=== PATIENT | female | born 1935 | race Caucasian/White ===

== ENCOUNTER 2017-12-18 12:00 | Inpatient (IN) ==
[2017-12-18] MEDS ORDERED: Ipratropium/Albuterol Neb 3 ML IH ONE (12:28)
[2017-12-18] MEDS ORDERED: methylPREDNISolone 125 MG/2 ML VIAL IVP ONE (12:28)
--- NOTE | 2017-12-18 12:53 | Emergency Department Note ---
Disposition Clinical Impression: Pneumonia Qualifiers: Pneumonia type: due to unspecified organism Laterality: bilateral Lung location : unspecified part of lung Qualified Code(s): J18.9 - Pneumonia, unspecified organism Acute and chronic respiratory failure Qualifiers: Respiratory failure complication: hypoxia Qualified Code(s): J96.21 - Acute and chronic respiratory failure with hypoxia Disposition: Admitted As Inpatient Condition: Fair Time of Disposition: 18:16 SOB HPI - General Chief Complaint: ED Shortness of Breath/Dyspnea Stated Complaint: shortness of breath Time Seen by Provider: 12/18/17 12:21 Source: patient, family Limitations: no limitations Nursing Notes Reviewed: Yes Vital Signs Reviewed: Yes - History of Present Illness Mrs. Olivera, an 82 year old female, presents from home for evaluation of URI type symptoms with associated dyspnea with exertion. She has productive cough. Onset one week ago after the flu shot. She was around her [id number] who had similar URI type symptoms at that time. Her symptoms are improved with her home albuterol inhaler. She has no home supple oxygen. Patient is she has had subjective fever but there were not measured. She has nausea with decreased appetite; no vomiting. No diarrhea or constipation. She does have a headache however no vertigo, no confusion, no changes in vision, no numbness or tingling. PMH: Asthma. No history of COPD. Habits: Never smoked, no illicits, no EtOH ROS: Positive: As above Negative: Measured fever, nausea, vomiting, vertigo, confusion, changes in vision, numbness, tingling, diarrhea, constipation, changes in urination, abdominal pain. - Related Data Home Medications Medication Instructions Recorded Confirmed Amitriptyline [Elavil] 25 mg PO HS 08/10/15 12/18/17 Lisinopril [Zestril] 20 mg PO DAILY 08/10/15 12/18/17 Montelukast [Singulair] 10 mg PO DAILY 08/10/15 12/18/17 Albuterol Neb [Proventil Neb] 2.5 mg IH BID 12/18/17 12/18/17 Albuterol Sulfate [Albuterol 2 puff IH Q4H PRN 12/18/17 12/18/17 Inhaler] Ipratropium Neb [Atrovent Neb] 0.5 mg IH QID 12/18/17 12/18/17 Pramipexole Di-HCl [Pramipexole 0.5 mg PO HS 12/18/17 12/18/17 Dihydrochloride] Allergies Allergy/AdvReac Type Severity Reaction Status Date / Time No Known Allergies Allergy Verified 12/18/17 12:17 All systems ED: reviewed and negative except as stated. Review of Systems: As Per HPI Past Medical History - Past Medical History Medical history: Reports: asthma, hyperlipidemia, hypertension Surgical history: Reports: cholecystectomy, orthopedic, other Psychiatric history: Reports: no psych history PHILOSOPHY INSTRUCTOR history: Reports: no PHILOSOPHY INSTRUCTOR history - Social History Smoking Status: Never smoker Smokeless Tobacco Status: No Alcohol use: Reports: none Drug use: Reports: none Physical Exam Vital Signs Reviewed General: Patient is alert, oriented, and in no acute distress. HEENT: No facial asymmetry. Head is normocephalic and atraumatic. PERRLA, EOMI. oral mucosa moist. Cardiovascular: Heart regular rate and rhythm without clicks, rubs, gallops, or murmurs. No JVD. PMI nondisplaced. Bilateral radial posterior tibial pulses 2 /4 equal. No pedal edema. Respiratory: Symmetric chest rise with good respiratory effort and good air entry to the bilateral lung bases. Bilateral breath sounds are clear without wheezing, crackles, or rhonchi. Abdomen: Bowel sounds present normoactive x-4 quadrants. Abdomen is soft, nondistended, and nontender. No organomegaly noted. Musculoskeletal: Spontaneously moving all extremities. Neuro: Alert and oriented 4. Psych: Patient's affect is appropriate for situation. - General Limitations: no limitations General appearance: alert, in no apparent distress Course Course Narrative: In the context of the patient's asthma with no history of smoking, her presentation was initially suspicious for acute exacerbation of asthma. Her lung sounds, however, were completely clear on auscultation. She did have good air entry inferring her lack of wheeze was not for lack of air movement. History is concerning for right-sided pneumonia. This provides a better explanation for her symptoms. Sick on her baseline room air with conversation; pulse ox to the mid 80s. She is agreeable to admission to the hospital for continued evaluation and management. Of note, patient's d-dimer is elevated to 803. This is below the age-adjusted cutoff of 840. Have started empiric antibiotics. Patient does not have elevated lactic acid. I discussed the patient with the admitting hospitalist, Dr. Lambert, who agrees to accept the patient for continued evaluation and management. Chest X-Ray 12/18/17 12:28 IMPRESSION: Mild bibasilar and right mid lung airspace opacities could reflect pneumonia in the correct clinical setting. D/ / 12/18/2017 13:23:40 Sedrick Hinds MD / obey Interpreting Provider: Sedrick Hinds MD Vital Signs Temperature 98.1 F 12/18/17 12:13 Pulse Rate 81 12/18/17 12:13 Respiratory Rate 16 12/18/17 12:13 Blood Pressure 145/77 12/18/17 12:13 O2 Sat by Pulse Oximetry 95 12/18/17 12:13 Temperature 97.8 F 12/18/17 17:20 Pulse Rate 81 12/18/17 17:20 Respiratory Rate 18 12/18/17 17:20 Blood Pressure 152/83 12/18/17 17:20 O2 Sat by Pulse Oximetry 97 12/18/17 17:59 Oxygen Delivery Oxygen Delivery Room Air Shortness of Breath/Dyspnea - Medical Records Medical records reviewed: Yes I reviewed the patient's medical records. - Lab Data Lab results reviewed: Yes I reviewed the patient's lab results. Result diagrams: 12/18/17 12:50 12/18/17 12:50 Lab Results 12/18/17 12/18/17 12/18/17 Range/Units 12:50 12:50 12:50 WBC 9.3 (4.3-11.1) K/mcL RBC 3.63 L (3.82-4.97) M/mcL Hgb 10.8 L (11.5-15.4) g/dL Hct 33.2 L (35.3-44.9) % MCV 91.5 (83.0-100.0) fL MCH 29.8 (28.0-33.3) pg MCHC 32.5 (31.6-35.5) g/dL RDW 13.0 (11.5-14.5) % Plt Count 268 (140-400) K/mcL MPV 9.8 (9.4-12.4) fL Immature Gran % 1.2 (0-4) % Seg Neutrophils % 76.2 % Lymphocytes % 14.3 % Monocytes % 6.6 % Eosinophils % 1.5 % Basophils % 0.2 % Neutrophils # 7.1 (1.6-8.9) K/mcL Lymphocytes # 1.3 (0.6-4.6) K/mcL Monocytes # 0.6 (0.0-1.3) K/mcL Eosinophils # 0.1 (0.0-0.6) K/mcL Basophils # 0.0 (0.0-0.2) K/mcL D-Dimer (0-500) ng/mLFEU Sodium 140 (136-145) mEq/L Potassium 3.5 (3.5-5.1) mEq/L Chloride 104 (98-107) mEq/L Carbon Dioxide 30 H (23-29) mEq/L BUN 24 H (8-23) mg/dL Creatinine 0.79 (0.60-1.20) mg/dL Est GFR ( Amer) > 60 (> 60) Est GFR (Non-Af Amer) > 60 (> 60) BUN/Creatinine Ratio 30 H (6-26) Glucose 118 H (70-105) mg/dL Calculated Osmolality 295 (280-300) Lactic Acid (0.5-2.2) mmol/L Calcium 9.0 (8.6-10.3) mg/dL Troponin I < 0.03 (< 0.04) ng/mL 12/18/17 12/18/17 Range/Units 13:10 15:16 WBC (4.3-11.1) K/mcL RBC (3.82-4.97) M/mcL Hgb (11.5-15.4) g/dL Hct (35.3-44.9) % MCV (83.0-100.0) fL MCH (28.0-33.3) pg MCHC (31.6-35.5) g/dL RDW (11.5-14.5) % Plt Count (140-400) K/mcL MPV (9.4-12.4) fL Immature Gran % (0-4) % Seg Neutrophils % % Lymphocytes % % Monocytes % % Eosinophils % % Basophils % % Neutrophils # (1.6-8.9) K/mcL Lymphocytes # (0.6-4.6) K/mcL Monocytes # (0.0-1.3) K/mcL Eosinophils # (0.0-0.6) K/mcL Basophils # (0.0-0.2) K/mcL D-Dimer 803 H (0-500) ng/mLFEU Sodium (136-145) mEq/L Potassium (3.5-5.1) mEq/L Chloride (98-107) mEq/L Carbon Dioxide (23-29) mEq/L BUN (8-23) mg/dL Creatinine (0.60-1.20) mg/dL Est GFR ( Amer) (> 60) Est GFR (Non-Af Amer) (> 60) BUN/Creatinine Ratio (6-26) Glucose (70-105) mg/dL Calculated Osmolality (280-300) Lactic Acid 0.6 (0.5-2.2) mmol/L Calcium (8.6-10.3) mg/dL Troponin I (< 0.04) ng/mL - Radiology Data Radiology results reviewed: Yes I reviewed the patient's radiology results. - EKG Data EKG attestation: Yes I reviewed and interpreted this EKG. EKG results narrative: EKG dated 12/18/17 at 12:30 turbid as sinus rhythm with rate of 79. Normal intervals. Normal axis. Isolated T-wave inversion in lead V1. Otherwise nonspecific ST-T changes. Compared to previous EKG dated 12/16/2012 showing no acute ischemic changes in comparison; inverted T-wave present in V1 comparison. Attestation Statement - Attestation Attestation: I examined this patient and my medical decision-making was reviewed with the Resident Physician. I agree with the documented findings, disposition and treatment plan as described except to the extent set forth below. Patient presents to the ED with a chief complaint of shortness of breath. She spelled out for about a week. Worse today. Dyspnea on exertion. Coughing. On examination she has some end expiratory wheezing. Her oxygen saturation drops to the mid 80s with conversation. Plan. Cardiac workup. Aerosols. Steroids and reevaluate.
[2017-12-18 13:08] LABS: Basophils % 0.2 %; Eosinophils # 0.1 K/mcL (0.0-0.6); Eosinophils % 1.5 %; Hematocrit 33.2 % (35.3-44.9); Hemoglobin 10.8 g/dL (11.5-15.4); Immature Granulocytes % 1.2 % (0-4); Lymphocytes # 1.3 K/mcL (0.6-4.6); Lymphocytes % 14.3 %; Mean Corpuscular HGB Conc 32.5 g/dL (31.6-35.5); Mean Corpuscular Hemoglobin 29.8 pg (28.0-33.3); Mean Corpuscular Volume 91.5 fL (83.0-100.0); Mean Platelet Volume 9.8 fL (9.4-12.4); Monocytes # 0.6 K/mcL (0.0-1.3); Monocytes % 6.6 %; Neutrophils # 7.1 K/mcL (1.6-8.9); Platelet Count 268 K/mcL (140-400); Red Blood Count 3.63 M/mcL (3.82-4.97); Segmented Neutrophils % 76.2 %
[2017-12-18 13:24] LABS: BUN/Creatinine Ratio 30 (6-26); Blood Urea Nitrogen 24 mg/dL (8-23); Carbon Dioxide 30 mEq/L (23-29); Chloride 104 mEq/L (98-107); Glucose 118 mg/dL (70-105); Osmolality,Calculated 295 (280-300); Potassium 3.5 mEq/L (3.5-5.1); Sodium 140 mEq/L (136-145); eGFR For African Americans > 60 (> 60); eGFR For Non-African Americans > 60 (> 60)
[2017-12-18] MEDS ORDERED: Azithromycin 500 MG in D5% in Water 250 ML IVPB ONE (15:03)
[2017-12-18] MEDS ORDERED: cefTRIAXone 1,000 MG in Water for inj. (sterile) 20 ML 10 ML IVP ONE (15:03)
[2017-12-18 18:03] LABS: Bilirubin,Urine Negative (Negative); Blood,Urine Negative (Negative); Clarity,Urine Clear (Clear); Color,Urine Yellow (Yellow); Glucose,Urine (UA) Normal (Normal); Ketones,Urine Negative (Negative); Leukocyte Esterase,Urine Negative (Negative); Nitrite,Urine Negative (Negative); PH,Urine 6.5 pH Units (5.0-8.0); Protein,Urine Trace mg/dL (Neg-Trace)
[2017-12-18 18:05] LABS: Bacteria,Urine None Seen per hpf (None-Few); Hyaline Casts,Urine None Seen per lpf (None-Few); Squamous Epithelial Cell,Urine Moderate per lpf (None-Few); WBC,Urine 0-3 per hpf (0-3)
[2017-12-18] MEDS ORDERED: Ipratropium/Albuterol Neb 3 ML IH PRN (19:59)
[2017-12-18] MEDS ORDERED: Naloxone 0.4 MG/ML INJ IVP PRN (20:53)
[2017-12-18] MEDS ORDERED: Ondansetron ODT 4 MG TAB.RAPDIS SL PRN (20:53)
--- NOTE | 2017-12-18 20:54 | Internal Med History&Physical ---
<Ernesto Ghotra - Last Filed: 12/18/17 20:51> Date of Encounter: 12/18/17 Time of Encounter: 08:00 Assessment and Plan (1) Dyspnea Current visit: Yes Status: Acute Improved since admission Most likely PNA Will rule out PE Qualifiers: Dyspnea type: shortness of breath Qualified Code(s): R06.02 - Shortness of breath; R06.00 - Dyspnea, unspecified; R06.01 - Orthopnea (2) Pneumonia Current visit: Yes Status: Suspected CXR showed mild bibasilar and right mid lung opacities which could represent PNA With clinical picture of productive cough, chills, and subjective fever, we will treat as PNA Patient received azithromycin and ceftriaxone in the ED, which we will continue , as well as a dose of steroids Flu negative Qualifiers: Pneumonia type: due to unspecified organism Laterality: left Lung location: lower lobe of lung Qualified Code(s): J18.1 - Lobar pneumonia, unspecified organism (3) Elevated d-dimer Current visit: Yes Status: Acute Elevated at 803 This is within age adjusted range up to 840 With CP and SOB, there is relatively low suspicion, but we will check CTA Chest NS @ 75 ml/hr to maintain kidney function (4) Asthma Current visit: Yes Status: Acute Does not appear to be in exacerbation. Restarted home medications of albuterol, ipratropium, and singulair Qualifiers: Asthma severity: unspecified severity Asthma persistence: unspecified Asthma complication type: uncomplicated Qualified Code(s): J45.909 - Unspecified asthma, uncomplicated (5) HTN (hypertension) Current visit: Yes Status: Acute Controlled Restarted home lisinopril 20 mg. Qualifiers: Hypertension type: essential hypertension Qualified Code(s): I10 - Essential (primary) hypertension (6) DVT prophylaxis Current visit: Yes Status: Acute Internal Medicine - H&P: HPI Chief complaint: SOB Admitted From: Home Plans for Post Hospital Care: Home History of present illness: Ms. Olivera is a 82 year old female who presented with SOB which started yesterday. She denies any specific inciting factor. She admits to an associated productive cough without hemoptysis. She admits cold sweats chills, and subjective fever. She admits to chest pain associated with cough in the superior midline chest. She denies any wheezes. PMH significant for asthma, hypertension, and hyperlipidemia. Past Med Surg Social Fam HX - Past Medical History Medical history: asthma, hyperlipidemia, hypertension Psychiatric history: no psych history - Past Surgical History Surgical History: cholecystectomy, orthopedic, other - Social History Smoking Status: Never smoker Smokeless Tobacco Status: No Alcohol use: none Drug use: none Internal Medicine - H&P: Meds Amitriptyline [Elavil] 25 mg PO HS 08/10/15 [History] Lisinopril [Zestril] 20 mg PO DAILY 08/10/15 [History] Montelukast [Singulair] 10 mg PO DAILY 08/10/15 [History] Albuterol Neb [Proventil Neb] 2.5 mg IH BID 12/18/17 [History] Albuterol Sulfate [Albuterol Inhaler] 2 puff IH Q4H PRN 12/18/17 [History] Ipratropium Neb [Atrovent Neb] 0.5 mg IH QID 12/18/17 [History] Pramipexole Di-HCl [Pramipexole Dihydrochloride] 0.5 mg PO HS 12/18/17 [History] 3 Allergy/AdvReac Type Severity Reaction Status Date / Time No Known Allergies Allergy Verified 12/18/17 12:17 All Systems PM: A 10-system review of systems was performed and is negative for pertinent findings except as documented above in the HPI. Review of systems: As per HPI - Constitutional Vitals: Temp Pulse Resp BP Pulse Ox 98.3 F 83 17 122/71 96 12/18/17 18:55 12/18/17 18:55 12/18/17 20:29 12/18/17 18:55 12/18/17 20:29 General appearance: Present: cooperative, A&O X 3, pleasant, no acute distress, answers questions appropriately - Head Head exam: Present: atraumatic, normal inspection, normocephalic - ENT ENT exam: Present: mucous membranes moist - Neck Neck exam general surgery: Present: trachea midline - Respiratory Respiratory exam: Present: decreased breath sounds. Absent: accessory muscle use, rales, respiratory distress, rhonchi, wheezes, tachypnea - Cardiovascular Cardiovascular exam: Present: RRR, +S1, +S2 - GI/Abdominal GI/Abdominal exam: Present: soft, no peritoneal signs. Absent: tenderness - Extremities Exam Extremities exam: Absent: pedal edema - Neurological Exam Neurological exam: Present: alert, oriented X3. Absent: altered - Psychiatric Psychiatric exam: Present: normal affect, normal mood. Absent: agitated, anxious - Skin Skin exam: Present: dry, warm Internal Med - H&P Results - Labs CBC & Chem 7: 12/18/17 12:50 12/18/17 12:50 Labs: Urine 12/18/17 Range/Units 17:49 Urine Color Yellow (Yellow) Urine Clarity Clear (Clear) Urine pH 6.5 (5.0-8.0) pH Units Ur Specific [place] 1.020 (1.010-1.025) Urine Protein Trace (Neg-Trace) mg/dL Urine Glucose (UA) Normal (Normal) mg/dL <Uli Soto - Last Filed: 12/19/17 01:48> Date of Encounter: 12/18/17 Time of Encounter: 23:45 Past Med Surg Social Fam HX - Past Medical History Attestation: Yes The following information was validated with the patient. Source: patient, old records reviewed Medical history: asthma - Constitutional Constitutional: fever(s) (subjective), no chills, no night sweats - EENT Eyes: no blurry vision, no change in vision Ears: no ear pain, no tinnitus Nose, mouth and throat: nasal congestion, sinus pressure, no sore throat - Cardiovascular Cardiovascular ROS IM: chest pain, no dyspnea, no dyspnea on exertion, no palpitations, no syncope - Respiratory Respiratory: cough, wheezing, chest congestion, excessive phlegm production, change in phlegm color, pain with cough - Gastrointestinal Gastrointestinal: no abdominal pain, no diarrhea, no hematemesis, no hematochezia, no melena, no nausea, no vomiting - Genitourinary Genitourinary: no dysuria, no flank pain, no hematuria - Musculoskeletal Musculoskeletal ROS IM: no arthralgias, no back pain, no muscle cramps, no myalgias - Integumentary Integumentary IM: no rash, no jaundice - Neurological Neurological ROS: no dizziness, no focal weakness, no frequent falls - Psychiatric Psychiatric: no anxiety, no depression - Endocrine Endocrine IM: no polydipsia, no polyuria - Hematologic/Lymphatic Hematologic/Lymphatic: no easy bruising, no lymphadenopathy - Allergic/Immunologic Allergic/Immunologic: wheezing, no GI upset with certain foods - Constitutional Vitals: Temp Pulse Resp BP Pulse Ox 97.7 F 77 18 111/65 93 12/18/17 23:18 12/18/17 23:18 12/18/17 23:18 12/18/17 23:18 12/18/17 23:18 General appearance: Present: cooperative, A&O X 3, pleasant, no acute distress - Head Head exam: Present: normal inspection - Eye Eye exam: Present: PERRL. Absent: scleral icterus - ENT ENT exam: Present: mucous membranes dry, normal exam - Neck Neck exam general surgery: Present: supple. Absent: lymphadenopathy - Respiratory Respiratory exam: Present: decreased breath sounds, rales (mostly in right base) . Absent: accessory muscle use, chest wall tenderness, respiratory distress - Cardiovascular Cardiovascular exam: Present: RRR, +S1, +S2 - GI/Abdominal GI/Abdominal exam: Present: soft. Absent: tenderness - Extremities Exam Extremities exam: Present: full ROM, warm, radial pulses palpable and symmetrical. Absent: calf tenderness - Back Exam Back exam: Absent: CVA tenderness (L), CVA tenderness (R) - Neurological Exam Neurological exam: Present: alert, oriented X3, no focal deficits - Psychiatric Psychiatric exam: Present: normal affect, normal mood - Skin Skin exam: Present: dry, warm. Absent: rash Internal Med - H&P Results - Labs CBC & Chem 7: 12/18/17 12:50 12/18/17 12:50 Labs: Urine 12/18/17 Range/Units 17:49 Urine Color Yellow (Yellow) Urine Clarity Clear (Clear) Urine pH 6.5 (5.0-8.0) pH Units Ur Specific [place] 1.020 (1.010-1.025) Urine Protein Trace (Neg-Trace) mg/dL Urine Glucose (UA) Normal (Normal) mg/dL - Impressions ITS Impressions Chest CTA 12/18/17 21:55 IMPRESSION: Limited by motion. No central pulmonary embolus. Segmental and subsegmental branches are not well evaluated secondary to artifact Multifocal airspace disease, suspicious for pneumonia. There is lucency seen in a nodular opacity in the right middle lobe which could represent dilated bronchus versus early cavitation. Secretions are seen in the lower lobe airways bilaterally. Small mediastinal nodes are seen, likely reactive D/ / Johnny Dougherty MD / Johnny Dougherty MD Interpreting Provider: Johnny Dougherty MD - Diagnostic Studies Chest x-ray Status: image reviewed by me (mild/early RML infiltrate process) - Attending Attestation I discussed the patient SYCUAN, PMH, ROS, lab data, and exam findings, with Dr. Ghotra. I then saw and examined patient independently as well. Patient gives a history suggestive of possible pneumonia/bronchitis. However, the pleuritic type chest pain she was explaining to me prompted me to order a CTA of her chest to rule out PE. CTA was negative for PE but did confirm findings concerning for pneumonia. We will continue IV antibiotics and aerosols as per Dr. Ghotra. She received a dose of Solumedrol in the ER, but I do not feel she needs steroids any further at this time. Other than my comments above and noted exam findings, I agree with Dr. Ghotra's assessment and plan.
[2017-12-18] MEDS: 0.9 % Sodium Chloride 1,000 ML IVC SCH (22:35)
[2017-12-19] MEDS: Ipratropium Neb 0.5 MG NEBULIZER IH SCH ×4 (04:18→23:07)
[2017-12-19 04:46] LABS: Hematocrit 34.8 % (35.3-44.9); Hemoglobin 10.8 g/dL (11.5-15.4); Immature Granulocytes % 1.2 % (0-4); Lymphocytes # 0.7 K/mcL (0.6-4.6); Lymphocytes % 8.2 %; Mean Corpuscular Hemoglobin 28.5 pg (28.0-33.3); Mean Corpuscular Volume 91.8 fL (83.0-100.0); Mean Platelet Volume 9.7 fL (9.4-12.4); Monocytes # 0.1 K/mcL (0.0-1.3); Monocytes % 1.3 %; Neutrophils # 7.7 K/mcL (1.6-8.9); Platelet Count 279 K/mcL (140-400); Red Blood Count 3.79 M/mcL (3.82-4.97); Red Cell Distribution Width 13.2 % (11.5-14.5); Segmented Neutrophils % 89.3 %
[2017-12-19] MEDS: *HR* Heparin 5,000 UNIT/ML VIAL SQ SCH ×2 (05:07→17:12)
[2017-12-19 05:17] LABS: BUN/Creatinine Ratio 31 (6-26); Blood Urea Nitrogen 19 mg/dL (8-23); Calcium 8.5 mg/dL (8.6-10.3); Carbon Dioxide 28 mEq/L (23-29); Chloride 105 mEq/L (98-107); Glucose 142 mg/dL (70-105); Osmolality,Calculated 295 (280-300); Potassium 4.2 mEq/L (3.5-5.1); Sodium 140 mEq/L (136-145); eGFR For African Americans > 60 (> 60); eGFR For Non-African Americans > 60 (> 60)
[2017-12-19] MEDS: Lisinopril 20 MG TABLET PO SCH (09:00)
[2017-12-19] MEDS: Albuterol 2.5 MG/3 ML NEBULIZER IH SCH ×2 (10:51→23:07)
[2017-12-19] MEDS: 0.9 % Sodium Chloride 1,000 ML IVC SCH (12:10)
[2017-12-19] MEDS: cefTRIAXone 1,000 MG in Water for inj. (sterile) 20 ML 10 ML IVP SCH (14:17)
[2017-12-19] MEDS: Azithromycin 500 MG in D5% in Water 250 ML IVPB SCH (14:18)
--- NOTE | 2017-12-19 17:46 | Internal Med Progress Note ---
Date of Encounter: 12/19/17 Time of Encounter: 11:00 - Assessment and plan (1) Pneumonia Current Visit: Yes Status: Suspected Assessment and plan: -Patient with no improvement in shortness of breath or productive cough and currently requiring supplemental oxygenation -Chest x-ray showed mild bibasilar and right mid lung airspace opacities could reflect pneumonia -CTA showed multifocal airspace disease, suspicious for pneumonia -Will continue IV ceftriaxone, azithromycin and DuoNeb's for community acquired pneumonia Qualifiers: Pneumonia type: due to unspecified organism Laterality: left Lung location: lower lobe of lung Qualified Code(s): J18.1 - Lobar pneumonia, unspecified organism (2) Acute and chronic respiratory failure Current Visit: Yes Status: Acute Assessment and plan: -Patient requiring 2 L of supplemental oxygenation secondary to community acquired pneumonia above Qualifiers: Respiratory failure complication: hypoxia Qualified Code(s): J96.21 - Acute and chronic respiratory failure with hypoxia (3) Asthma Current Visit: Yes Status: Acute Assessment and plan: -Patient does not appear clinically to have asthma exacerbation as there is no wheezing on exam. -Will not nitiate steroids at this point but will continue DuoNeb's. Qualifiers: Asthma severity: unspecified severity Asthma persistence: unspecified Asthma complication type: uncomplicated Qualified Code(s): J45.909 - Unspecified asthma, uncomplicated (4) HTN (hypertension) Current Visit: Yes Status: Acute Assessment and plan: -Controlled; continue RYAN inhibitor Qualifiers: Hypertension type: essential hypertension Qualified Code(s): I10 - Essential (primary) hypertension (5) DVT prophylaxis Current Visit: Yes Status: Acute Assessment and plan: Subcutaneous heparin - Subjective Interval history: Patient with not much improvement in shortness of breath or productive cough; admitted overnight - Constitutional Vitals: Temp Pulse Resp BP Pulse Ox 97.4 F L 78 18 121/62 94 12/19/17 14:58 12/19/17 15:05 12/19/17 15:05 12/19/17 15:05 12/19/17 15:05 General appearance: Present: cooperative, A&O X 3, pleasant, no acute distress - Respiratory Respiratory exam: Present: CTAB. Absent: accessory muscle use, rales, rhonchi, wheezes - Cardiovascular Cardiovascular exam: Present: RRR, +S1, +S2. Absent: diastolic murmur, gallop, rubs, systolic murmur Internal Medicine: Result - Labs CBC & Chem 7: 12/19/17 04:18 12/19/17 04:18 Labs: Short CBC 12/19/17 Range/Units 04:18 WBC 8.6 (4.3-11.1) K/mcL Hgb 10.8 L (11.5-15.4) g/dL Hct 34.8 L (35.3-44.9) % Plt Count 279 (140-400) K/mcL Neutrophils # 7.7 (1.6-8.9) K/mcL BMP 12/19/17 04:18 Sodium 140 Potassium 4.2 Chloride 105 Carbon Dioxide 28 BUN 19 Creatinine 0.61 Glucose 142 H Calcium 8.5 L Urine 12/18/17 Range/Units 17:49 Urine Color Yellow (Yellow) Urine Clarity Clear (Clear) Urine pH 6.5 (5.0-8.0) pH Units Ur Specific [place] 1.020 (1.010-1.025) Urine Protein Trace (Neg-Trace) mg/dL Urine Glucose (UA) Normal (Normal) mg/dL - ABG Interpretation ABG results: PT/INR, D-dimer D-Dimer 803 ng/mLFEU (0-500) H 12/18/17 13:10 - Impressions Impressions Chest CTA 12/18/17 21:55 IMPRESSION: Limited by motion. No central pulmonary embolus. Segmental and subsegmental branches are not well evaluated secondary to artifact Multifocal airspace disease, suspicious for pneumonia. There is lucency seen in a nodular opacity in the right middle lobe which could represent dilated bronchus versus early cavitation. Secretions are seen in the lower lobe airways bilaterally. Small mediastinal nodes are seen, likely reactive D/ / Johnny Dougherty MD / Johnny Dougherty MD Interpreting Provider: Johnny Dougherty MD Consult Discharge Plan - Plan Referrals: Rubina Broussard GARBAGE PERSON [Primary Care Provider] -
[2017-12-20] MEDS: 0.9 % Sodium Chloride 1,000 ML IVC SCH (03:48)
[2017-12-20] MEDS: Ipratropium Neb 0.5 MG NEBULIZER IH SCH ×4 (04:14→22:54)
[2017-12-20] MEDS: *HR* Heparin 5,000 UNIT/ML VIAL SQ SCH ×2 (06:02→16:50)
[2017-12-20] MEDS: Lisinopril 20 MG TABLET PO SCH (08:06)
[2017-12-20 10:04] LABS: Basophils % 0.3 %; Eosinophils # 0.1 K/mcL (0.0-0.6); Hematocrit 35.8 % (35.3-44.9); Hemoglobin 10.9 g/dL (11.5-15.4); Immature Granulocytes % 0.8 % (0-4); Lymphocytes # 1.9 K/mcL (0.6-4.6); Lymphocytes % 20.3 %; Mean Corpuscular HGB Conc 30.4 g/dL (31.6-35.5); Mean Corpuscular Hemoglobin 28.7 pg (28.0-33.3); Mean Corpuscular Volume 94.2 fL (83.0-100.0); Mean Platelet Volume 9.6 fL (9.4-12.4); Monocytes # 0.5 K/mcL (0.0-1.3); Monocytes % 5.8 %; Neutrophils # 6.7 K/mcL (1.6-8.9); Platelet Count 271 K/mcL (140-400); Red Cell Distribution Width 13.4 % (11.5-14.5); Segmented Neutrophils % 71.8 %
[2017-12-20 10:15] LABS: BUN/Creatinine Ratio 24 (6-26); Blood Urea Nitrogen 16 mg/dL (8-23); Calcium 8.4 mg/dL (8.6-10.3); Carbon Dioxide 29 mEq/L (23-29); Chloride 107 mEq/L (98-107); Glucose 112 mg/dL (70-105); Osmolality,Calculated 292 (280-300); Potassium 3.9 mEq/L (3.5-5.1); Sodium 140 mEq/L (136-145); eGFR For African Americans > 60 (> 60); eGFR For Non-African Americans > 60 (> 60)
[2017-12-20] MEDS: Albuterol 2.5 MG/3 ML NEBULIZER IH SCH ×2 (11:03→22:54)
[2017-12-20] MEDS: cefTRIAXone 1,000 MG in Water for inj. (sterile) 20 ML 10 ML IVP SCH (14:54)
[2017-12-20] MEDS: Azithromycin 500 MG in D5% in Water 250 ML IVPB SCH (14:58)
--- NOTE | 2017-12-20 18:17 | Internal Med Progress Note ---
Date of Encounter: 12/20/17 Time of Encounter: 11:00 - Assessment and plan (1) Pneumonia Current Visit: Yes Status: Suspected Assessment and plan: -Patient with some improvement in shortness of breath or productive cough and currently requiring supplemental oxygenation -Chest x-ray showed mild bibasilar and right mid lung airspace opacities could reflect pneumonia -CTA showed multifocal airspace disease, suspicious for pneumonia -Will continue IV ceftriaxone, azithromycin and DuoNeb's for community acquired pneumonia Qualifiers: Pneumonia type: due to unspecified organism Laterality: left Lung location: lower lobe of lung Qualified Code(s): J18.1 - Lobar pneumonia, unspecified organism (2) Acute and chronic respiratory failure Current Visit: Yes Status: Acute Assessment and plan: -Patient requiring 2 L of supplemental oxygenation secondary to community acquired pneumonia above Qualifiers: Respiratory failure complication: hypoxia Qualified Code(s): J96.21 - Acute and chronic respiratory failure with hypoxia (3) Asthma Current Visit: Yes Status: Acute Assessment and plan: -Patient does not appear clinically to have asthma exacerbation as there is no wheezing on exam. -Will not nitiate steroids at this point but will continue DuoNeb's. Qualifiers: Asthma severity: unspecified severity Asthma persistence: unspecified Asthma complication type: uncomplicated Qualified Code(s): J45.909 - Unspecified asthma, uncomplicated (4) HTN (hypertension) Current Visit: Yes Status: Acute Assessment and plan: -Controlled; continue RYAN inhibitor Qualifiers: Hypertension type: essential hypertension Qualified Code(s): I10 - Essential (primary) hypertension (5) DVT prophylaxis Current Visit: Yes Status: Acute Assessment and plan: Subcutaneous heparin - Subjective Interval history: Patient some improvement in shortness of breath or productive cough She is still requiring supplemental oxygenation - Constitutional Vitals: Temp Pulse Resp BP Pulse Ox 97.8 F 80 15 162/74 95 12/20/17 16:19 12/20/17 16:19 12/20/17 16:19 12/20/17 16:19 12/20/17 16:19 General appearance: Present: cooperative, A&O X 3, pleasant, no acute distress - Cardiovascular Cardiovascular exam: Present: RRR, +S1, +S2. Absent: diastolic murmur, gallop, rubs, systolic murmur - GI/Abdominal GI/Abdominal exam: Present: normal bowel sounds, soft, no peritoneal signs. Absent: distended, tenderness Internal Medicine: Result - Labs CBC & Chem 7: 12/20/17 09:48 12/20/17 09:48 Labs: Short CBC 12/20/17 Range/Units 09:48 WBC 9.3 (4.3-11.1) K/mcL Hgb 10.9 L (11.5-15.4) g/dL Hct 35.8 (35.3-44.9) % Plt Count 271 (140-400) K/mcL Neutrophils # 6.7 (1.6-8.9) K/mcL BMP 12/20/17 09:48 Sodium 140 Potassium 3.9 Chloride 107 Carbon Dioxide 29 BUN 16 Creatinine 0.66 Glucose 112 H Calcium 8.4 L - ABG Interpretation ABG results: PT/INR, D-dimer D-Dimer 803 ng/mLFEU (0-500) H 12/18/17 13:10 Consult Discharge Plan - Plan Referrals: Rubina Broussard, [facility] [Primary Care Provider] -
[2017-12-21] MEDS: Ipratropium Neb 0.5 MG NEBULIZER IH SCH ×3 (04:58→16:30)
[2017-12-21] MEDS: *HR* Heparin 5,000 UNIT/ML VIAL SQ SCH (05:50)
--- NOTE | 2017-12-21 06:37 | Electrocardiograph Report ---
[address] [address] Test Date: 2017-12-18 Pat Name: Peace Olivera Department: 104 Room: 3A23 Gender: F [employer]: AM : 1935 Requested By: Ben Cid Order Number: [id number] Reading MD: Neri Child MD Measurements Intervals [place] Rate: 79 P: 44 [place]: 163 QRS: 4 QRSD: 98 T: 22 QT: 393 QTc: 428 Interpretive Statements SINUS RHYTHM VOLTAGE CRITERIA FOR LVH BASELINE ARTIFACT Electronically Signed On 12-21-2017 6:35:36 EST by Neri Child MD
[2017-12-21 06:54] LABS: BUN/Creatinine Ratio 24 (6-26); Blood Urea Nitrogen 15 mg/dL (8-23); Calcium 8.5 mg/dL (8.6-10.3); Carbon Dioxide 30 mEq/L (23-29); Chloride 104 mEq/L (98-107); Glucose 107 mg/dL (70-105); Osmolality,Calculated 287 (280-300); Potassium 4.1 mEq/L (3.5-5.1); Sodium 138 mEq/L (136-145); eGFR For African Americans > 60 (> 60); eGFR For Non-African Americans > 60 (> 60)
[2017-12-21 07:30] LABS: Basophils % 0.3 %; Eosinophils # 0.2 K/mcL (0.0-0.6); Eosinophils % 2.1 %; Hematocrit 34.4 % (35.3-44.9); Hemoglobin 10.9 g/dL (11.5-15.4); Immature Granulocytes % 0.7 % (0-4); Lymphocytes # 1.3 K/mcL (0.6-4.6); Lymphocytes % 18.6 %; Mean Corpuscular HGB Conc 31.7 g/dL (31.6-35.5); Mean Corpuscular Hemoglobin 29.1 pg (28.0-33.3); Mean Platelet Volume 10.2 fL (9.4-12.4); Monocytes # 0.6 K/mcL (0.0-1.3); Monocytes % 7.8 %; Platelet Count 247 K/mcL (140-400); Red Blood Count 3.74 M/mcL (3.82-4.97); Red Cell Distribution Width 13.3 % (11.5-14.5); Segmented Neutrophils % 70.5 %
[2017-12-21] MEDS: Lisinopril 20 MG TABLET PO SCH (09:38)
[2017-12-21] MEDS: Albuterol 2.5 MG/3 ML NEBULIZER IH SCH (10:33)
[2017-12-21 14:33] VITALS: BP 128/79
[2017-12-21] MEDS: Azithromycin 500 MG in D5% in Water 250 ML IVPB SCH (15:34)
[2017-12-21] MEDS: cefTRIAXone 1,000 MG in Water for inj. (sterile) 20 ML 10 ML IVP SCH (15:34)
--- NOTE | 2017-12-21 16:21 | Discharge Summary ---
Date of Encounter: 12/21/17 Time of Encounter: 11:00 - Discharge Diagnosis (1) Pneumonia Priority: Primary Status: Suspected Qualifiers: Pneumonia type: due to unspecified organism Laterality: left Lung location: lower lobe of lung Qualified Code(s): J18.1 - Lobar pneumonia, unspecified organism (2) Acute and chronic respiratory failure Priority: Secondary Status: Acute Qualifiers: Respiratory failure complication: hypoxia Qualified Code(s): J96.21 - Acute and chronic respiratory failure with hypoxia (3) Asthma Priority: Secondary Status: Acute Qualifiers: Asthma severity: unspecified severity Asthma persistence: unspecified Asthma complication type: uncomplicated Qualified Code(s): J45.909 - Unspecified asthma, uncomplicated (4) HTN (hypertension) Priority: Secondary Status: Acute Qualifiers: Hypertension type: essential hypertension Qualified Code(s): I10 - Essential (primary) hypertension - Discharge Medications Prescriptions: Azithromycin [Zithromax Tri-Steven] 500 mg PO DAILY #5 tablet Home Medications: Amitriptyline [Elavil] 25 mg PO HS 08/10/15 [History] Lisinopril [Zestril] 20 mg PO DAILY 08/10/15 [History] Montelukast [Singulair] 10 mg PO DAILY 08/10/15 [History] Albuterol Neb [Proventil Neb] 2.5 mg IH BID 12/18/17 [History] Albuterol Sulfate [Albuterol Inhaler] 2 puff IH Q4H PRN 12/18/17 [History] Ipratropium Neb [Atrovent Neb] 0.5 mg IH QID 12/18/17 [History] Pramipexole Di-HCl [Pramipexole Dihydrochloride] 0.5 mg PO HS 12/18/17 [History] Azithromycin [Zithromax Tri-Steven] 500 mg PO DAILY #5 tablet 12/21/17 [Rx] Allergies/Adverse Reactions: 3 Allergy/AdvReac Type Severity Reaction Status Date / Time No Known Allergies Allergy Verified 12/18/17 12:17 Date of admission: 12/20/17 18:17 Primary care physician: Jovani Liz - Patient Status Disposition: Home, Self-Care Condition: Fair - Discharge Instructions Instructions: Asthma (DC), Acute Respiratory Distress Syndrome (DC) Follow Up With: Rubina Broussard, [facility] [Primary Care Provider] - Hospital course: Patient is an 82-year-old female with past medical history significant for hypertension and asthma who presented to the ER on 12/20/17 due to shortness of breath/cough. Patient reported of an associated productive cough without hemoptysis so was brought to the ER for further evaluation. In the ER, chest x-ray showed mild bibasilar and right mid lung airspace opacities which could reflect pneumonia and CTA showed multifocal airspace disease, suspicious for pneumonia. Patient was admitted to the medical floor for treatment for community acquired pneumonia. During patients hospital stay, her symptoms resolved with treatment of IV ceftriaxone and IV azithromycin in addition to DuoNebs. Patient was also found to be in acute hypoxic respiratory failure which resolved after treatment for pneumonia as above and was able to be weaned off oxygen. She was recommended for swing bed/custodial facility but family insist that patient was coerced to agree with plan. Family is refusing recommendations for patient to go to swing bed/custodial facility and requesting to take patient home today. She will be discharged home to continue a 5 day course of azithromycin and to follow-up of her primary care provider. - Time Spent with Patient Total time spent providing and/or coordinating discharge services: Less than 30 minutes - Constitutional Vitals: Temp Pulse Resp BP Pulse Ox 97.5 F L 76 16 128/79 94 12/21/17 14:28 12/21/17 14:28 12/21/17 14:28 12/21/17 14:28 12/21/17 14:28 General appearance: Present: cooperative, A&O X 3, pleasant, no acute distress - Respiratory Respiratory exam: Present: CTAB. Absent: accessory muscle use, rales, rhonchi, wheezes - Cardiovascular Cardiovascular exam: Present: RRR, +S1, +S2. Absent: diastolic murmur, gallop, rubs, systolic murmur
== END 2017-12-21 16:55 | disposition home or self-care (01) | DRG 193 ==
LOC: 3ANU 12:00 → EMEROO 12:00 → 3ANU 16:47
PROVIDERS: ADMIT Hospitalist; ATTEND Hospitalist

== ENCOUNTER 2019-11-16 12:13 | Inpatient (IN) ==
[2019-11-16] MEDS ORDERED: Naloxone 0.4 MG/ML INJ IVP PRN (14:43)
[2019-11-16] MEDS ORDERED: *HR* Metoprolol 5 MG/5 ML VIAL IVP ONE (14:47)
[2019-11-16] MEDS ORDERED: Furosemide 40 MG/4 ML VIAL IVP ONE (14:47)
[2019-11-16] MEDS ORDERED: clonazePAM 0.5 MG TABLET PO PRN (15:33)
[2019-11-16] MEDS: methylPREDNISolone 125 MG/2 ML VIAL IVP SCH (15:51)
[2019-11-16] MEDS: Ipratropium/Albuterol Neb 3 ML IH SCH ×3 (16:28→23:58)
[2019-11-16] MEDS: *HR* Heparin 5,000 UNIT/ML VIAL SQ SCH (17:46)
[2019-11-16 17:50] LABS: Adenovirus Not Detected (Not Detect); Bordetella Pertussis Not Detected (Not Detect); Chlamydophila pneumoniae Not Detected (Not Detect); Coronavirus 229E Not Detected (Not Detect); Coronavirus HKU1 Not Detected (Not Detect); Coronavirus NL63 Not Detected (Not Detect); Coronavirus OC43 Not Detected (Not Detect); Human Metapneumovirus Not Detected (Not Detect); Human Rhinovirus/Enterovirus Not Detected (Not Detect); Influenza A Subtype 2009 H1 Not Detected (Not Detect); Influenza A Untypeable Not Detected (Not Detect); Influenza B Not Detected (Not Detect); Mycoplasma pneumoniae Not Detected (Not Detect); Parainfluenza Virus 1 Not Detected (Not Detect); Parainfluenza Virus 2 Not Detected (Not Detect); Parainfluenza Virus 3 Not Detected (Not Detect); Parainfluenza Virus 4 Not Detected (Not Detect); Respiratory Syncytial Virus DETECTED (Not Detect)
[2019-11-16] MEDS: Budesonide/Formoterol 80/4.5 1 PUFF INH IH SCH (20:12)
[2019-11-17] MEDS: methylPREDNISolone 125 MG/2 ML VIAL IVP SCH ×2 (00:30→07:41)
[2019-11-17] MEDS: Ipratropium/Albuterol Neb 3 ML IH SCH ×5 (03:45→19:44)
[2019-11-17] MEDS: *HR* Heparin 5,000 UNIT/ML VIAL SQ SCH ×2 (05:26→17:05)
[2019-11-17 06:37] LABS: Basophils % 0.2 %; Hematocrit 41.4 % (35.3-44.9); Hemoglobin 13.8 g/dL (11.5-15.4); Immature Granulocytes % 0.6 % (0-4); Lymphocytes # 0.5 K/mcL (0.6-4.6); Lymphocytes % 7.2 %; Mean Corpuscular HGB Conc 33.3 g/dL (31.6-35.5); Mean Corpuscular Hemoglobin 30.4 pg (28.0-33.3); Mean Corpuscular Volume 91.2 fL (83.0-100.0); Mean Platelet Volume 10.8 fL (9.4-12.4); Monocytes # 0.4 K/mcL (0.0-1.3); Monocytes % 5.5 %; Neutrophils # 5.7 K/mcL (1.6-8.9); Platelet Count 183 K/mcL (140-400); Red Blood Count 4.54 M/mcL (3.82-4.97); Red Cell Distribution Width 13.3 % (11.5-14.5); Segmented Neutrophils % 86.5 %; White Blood Count 6.5 K/mcL (4.3-11.1)
[2019-11-17 06:55] LABS: BUN/Creatinine Ratio 38 (6-26); Blood Urea Nitrogen 28 mg/dL (8-23); Carbon Dioxide 31 mEq/L (23-29); Chloride 93 mEq/L (98-107); Glucose 123 mg/dL (70-105); Osmolality,Calculated 303 (280-300); Platelet Estimate Normal (Normal); Potassium 3.8 mEq/L (3.5-5.1); Sodium 143 mEq/L (136-145); eGFR For African Americans > 60 (> 60); eGFR For Non-African Americans > 60 (> 60)
[2019-11-17] MEDS: Budesonide/Formoterol 80/4.5 1 PUFF INH IH SCH (07:23)
[2019-11-17] MEDS ORDERED: Albuterol 2.5 MG/3 ML NEBULIZER IH PRN ×2 (09:48→10:55)
[2019-11-17] MEDS: Metoprolol XL (24 HR) Succ 25 MG TAB.ER.24H PO SCH (11:03)
[2019-11-17] MEDS: Lisinopril 20 MG TABLET PO SCH (11:03)
[2019-11-17] MEDS ORDERED: Racepinephrine Neb 0.5 ML VIAL IH ONE (15:45)
[2019-11-17] MEDS: MethylPREDNISolone 40 MG/ML VIAL IVP SCH ×2 (16:52→23:12)
[2019-11-17] MEDS ORDERED: *HR* Metoprolol 5 MG/5 ML VIAL IVP ONE ×2 (16:56→16:59)
[2019-11-17 18:05] LABS: VBG HCO3 34 mEq/L (21-27); VBG PCO2 53 mmHg (41-51); VBG PH 7.42 pH Units (7.32-7.42); VBG PO2 231 mmHg (25-50)
[2019-11-17] MEDS: Budesonide/Formoterol 160/4.5 1 PUFF INH IH SCH (19:44)
[2019-11-18] MEDS: Ipratropium/Albuterol Neb 3 ML IH SCH ×7 (00:40→23:00)
[2019-11-18] MEDS: *HR* Heparin 5,000 UNIT/ML VIAL SQ SCH ×2 (06:06→17:09)
[2019-11-18] MEDS: Budesonide/Formoterol 160/4.5 1 PUFF INH IH SCH ×2 (07:46→20:21)
[2019-11-18] MEDS: Lisinopril 20 MG TABLET PO SCH (07:59)
[2019-11-18] MEDS: Metoprolol XL (24 HR) Succ 25 MG TAB.ER.24H PO SCH (07:59)
[2019-11-18] MEDS: MethylPREDNISolone 40 MG/ML VIAL IVP SCH ×3 (07:59→23:35)
[2019-11-19] MEDS: Ipratropium/Albuterol Neb 3 ML IH SCH ×5 (03:58→18:56)
[2019-11-19] MEDS: *HR* Heparin 5,000 UNIT/ML VIAL SQ SCH ×2 (05:28→16:44)
[2019-11-19 05:53] LABS: Basophils % 0.2 %; Hematocrit 41.8 % (35.3-44.9); Hemoglobin 13.6 g/dL (11.5-15.4); Immature Granulocytes % 0.8 % (0-4); Lymphocytes # 0.6 K/mcL (0.6-4.6); Lymphocytes % 10.4 %; Mean Corpuscular HGB Conc 32.5 g/dL (31.6-35.5); Mean Corpuscular Hemoglobin 30.8 pg (28.0-33.3); Mean Corpuscular Volume 94.6 fL (83.0-100.0); Mean Platelet Volume 11.1 fL (9.4-12.4); Monocytes # 0.3 K/mcL (0.0-1.3); Monocytes % 5.3 %; Neutrophils # 4.4 K/mcL (1.6-8.9); Platelet Count 173 K/mcL (140-400); Red Blood Count 4.42 M/mcL (3.82-4.97); Red Cell Distribution Width 13.2 % (11.5-14.5); Segmented Neutrophils % 83.3 %; White Blood Count 5.3 K/mcL (4.3-11.1)
[2019-11-19 06:52] LABS: BUN/Creatinine Ratio 79 (6-26); Blood Urea Nitrogen 54 mg/dL (8-23); Calcium 9.2 mg/dL (8.6-10.3); Carbon Dioxide 37 mEq/L (23-29); Chloride 96 mEq/L (98-107); Glucose 155 mg/dL (70-105); Osmolality,Calculated 312 (280-300); Potassium 4.3 mEq/L (3.5-5.1); Sodium 142 mEq/L (136-145); eGFR For African Americans > 60 (> 60); eGFR For Non-African Americans > 60 (> 60)
[2019-11-19] MEDS: Budesonide/Formoterol 160/4.5 1 PUFF INH IH SCH ×2 (07:32→20:00)
[2019-11-19] MEDS: Lisinopril 20 MG TABLET PO SCH (08:38)
[2019-11-19] MEDS: MethylPREDNISolone 40 MG/ML VIAL IVP SCH (08:39)
[2019-11-19] MEDS: Metoprolol XL (24 HR) Succ 25 MG TAB.ER.24H PO SCH (08:39)
[2019-11-19] MEDS ORDERED: Metoprolol XL (24 HR) Succ 25 MG TAB.ER.24H PO ONE (15:11)
[2019-11-19] MEDS: predniSONE 20 MG TABLET PO SCH (16:44)
[2019-11-20] MEDS: Ipratropium/Albuterol Neb 3 ML IH SCH ×6 (00:09→16:20)
[2019-11-20] MEDS: *HR* Heparin 5,000 UNIT/ML VIAL SQ SCH (05:06)
[2019-11-20] MEDS: Budesonide/Formoterol 160/4.5 1 PUFF INH IH SCH (07:38)
[2019-11-20] MEDS: Lisinopril 20 MG TABLET PO SCH (08:50)
[2019-11-20] MEDS: predniSONE 20 MG TABLET PO SCH (08:50)
[2019-11-20] MEDS ORDERED: Metoprolol XL (24 HR) Succ 50 MG TAB.ER.24H PO SCH (09:00)
[2019-11-20 11:37] LABS: Basophils % 0.1 %; Hematocrit 41.4 % (35.3-44.9); Hemoglobin 13.4 g/dL (11.5-15.4); Immature Granulocytes % 0.6 % (0-4); Lymphocytes % 12.9 %; Mean Corpuscular HGB Conc 32.4 g/dL (31.6-35.5); Mean Corpuscular Hemoglobin 30.7 pg (28.0-33.3); Mean Corpuscular Volume 94.7 fL (83.0-100.0); Mean Platelet Volume 10.9 fL (9.4-12.4); Monocytes % 11.8 %; Platelet Count 175 K/mcL (140-400); Red Blood Count 4.37 M/mcL (3.82-4.97); Segmented Neutrophils % 74.6 %
[2019-11-20 11:42] LABS: Monocytes # 0.9 K/mcL (0.0-1.3)
[2019-11-20 11:43] LABS: BUN/Creatinine Ratio 70 (6-26); Blood Urea Nitrogen 49 mg/dL (8-23); Calcium 9.5 mg/dL (8.6-10.3); Carbon Dioxide 38 mEq/L (23-29); Chloride 96 mEq/L (98-107); Glucose 106 mg/dL (70-105); Osmolality,Calculated 309 (280-300); Potassium 3.8 mEq/L (3.5-5.1); Sodium 143 mEq/L (136-145); eGFR For African Americans > 60 (> 60); eGFR For Non-African Americans > 60 (> 60)
[2019-11-20 15:31] VITALS: BP 135/78
== END 2019-11-20 18:54 | DRG 202 ==
LOC: 2ANU → SUATTDRO 11-17 14:14 → 2ANU 11-18 21:59
PROVIDERS: ADMIT Internal Medicine; ATTEND Internal Medicine

== ENCOUNTER 2022-01-03 01:17 | Inpatient (IN) ==
[2022-01-03] MEDS ORDERED: Naloxone 0.4 MG/ML INJ IVP PRN (08:23)
[2022-01-03] MEDS ORDERED: Ondansetron 4 MG/2 ML VIAL IVP PRN (08:23)
[2022-01-03] MEDS: MethylPREDNISolone 40 MG/ML VIAL IVP SCH ×2 (09:24→18:08)
[2022-01-03] MEDS: Ipratropium/Albuterol Neb 3 ML IH SCH ×3 (12:56→21:34)
[2022-01-03] MEDS ORDERED: Budesonide/Formoterol 80/4.5 1 PUFF INH IH ONE (17:21)
[2022-01-03] MEDS: Sennosides/Docusate Sodium TABLET PO SCH (20:42)
[2022-01-04] MEDS: Ipratropium/Albuterol Neb 3 ML IH SCH ×4 (04:01→23:30)
[2022-01-04] MEDS: MethylPREDNISolone 40 MG/ML VIAL IVP SCH (05:06)
[2022-01-04 05:35] LABS: Basophils % 0.1 %; Hematocrit 29.5 % (35.3-44.9); Hemoglobin 9.3 g/dL (11.5-15.4); Immature Granulocytes % 0.9 % (0-4); Lymphocytes % 13.1 %; Mean Corpuscular HGB Conc 31.5 g/dL (31.6-35.5); Mean Corpuscular Hemoglobin 30.5 pg (28.0-33.3); Mean Corpuscular Volume 96.7 fL (83.0-100.0); Mean Platelet Volume 10.7 fL (9.4-12.4); Monocytes # 0.4 K/mcL (0.0-1.3); Monocytes % 4.4 %; Neutrophils # 6.5 K/mcL (1.6-8.9); Platelet Count 239 K/mcL (140-400); Red Blood Count 3.05 M/mcL (3.82-4.97); Segmented Neutrophils % 81.5 %
[2022-01-04 05:40] LABS: INR 1.2
[2022-01-04 05:47] LABS: BUN/Creatinine Ratio 40 (6-26); Blood Urea Nitrogen 29 mg/dL (8-23); Calcium 9.1 mg/dL (8.6-10.3); Carbon Dioxide 30 mEq/L (23-29); Chloride 99 mEq/L (98-107); Glucose 155 mg/dL (70-105); Magnesium 2.2 mg/dL (1.6-2.6); Osmolality,Calculated 289 (280-300); Potassium 4.4 mEq/L (3.5-5.1); Sodium 135 mEq/L (136-145); eGFR For African Americans > 60 (> 60); eGFR For Non-African Americans > 60 (> 60)
[2022-01-04] MEDS: Venlafaxine XR (24 HR) 37.5 MG CAP.ER.24H PO SCH (08:52)
[2022-01-04] MEDS: Metoprolol XL (24 HR) Succ 25 MG TAB.ER.24H PO SCH (08:52)
[2022-01-04] MEDS: Sennosides/Docusate Sodium TABLET PO SCH ×2 (08:52→21:48)
[2022-01-04] MEDS: Magnesium Oxide 400 MG TABLET PO SCH (08:53)
[2022-01-04] MEDS: lisinopriL 10 MG TABLET PO SCH (08:53)
[2022-01-04] MEDS: Famotidine 20 MG TABLET PO SCH (08:53)
[2022-01-04] MEDS ORDERED: Metoprolol XL (24 HR) Succ 50 MG TAB.ER.24H PO SCH (09:00)
[2022-01-04] MEDS: Budesonide/Formoterol 80/4.5 1 PUFF INH IH SCH ×2 (10:48→23:30)
[2022-01-04] MEDS ORDERED: Ondansetron 4 MG/2 ML VIAL ONE (12:21)
[2022-01-04] MEDS ORDERED: *HR* Propofol 200 MG/20 ML VIAL IVP ONE ×2 (12:21→13:35)
[2022-01-04] MEDS ORDERED: Lidocaine HCL 4 ML Topical Solution (Laryng-O-Jet Kit Sterile Pak) TP ONE (12:21)
[2022-01-04] MEDS ORDERED: Lidocaine -MPF 2% 5 ML VIAL ONE (12:21)
[2022-01-04] MEDS ORDERED: *HR* Rocuronium Bromide 50 MG/5 ML VIAL ONE (12:21)
[2022-01-04] MEDS ORDERED: *HR* FentaNYL (PF) 100 MCG/2 ML VIAL ONE ×2 (12:21→15:12)
[2022-01-04] MEDS ORDERED: CeFAZolin Syr 2,000MG/20 ML 2,000 MG/20 ML SYRINGE IVPB ONE (13:01)
[2022-01-04] MEDS ORDERED: Acetaminophen IV 1,000 MG/100 ML BAG IVPB ONE (13:03)
[2022-01-04] MEDS ORDERED: ROPIVACAINE/PF/NS 0.25% 1 EACH SYRINGE INTRAART ONE (13:33)
[2022-01-04] MEDS ORDERED: *HR* Vasopressin 20 UNIT/ML VIAL ONE (14:02)
[2022-01-04] MEDS ORDERED: Ketorolac 30 MG/ML VIAL IVP PRN (16:51)
[2022-01-04] MEDS ORDERED: *HR* OxyCODONE Immed Rel 5 MG TABLET PO PRN (16:51)
[2022-01-04] MEDS: Morphine Sulfate 2 MG/ML SYRINGE IVP PRN ×2 (17:27→17:37)
[2022-01-04] MEDS: Ringers Solution, Lactated 1,000 ML IVC SCH (18:31)
[2022-01-04] MEDS: CeFAZolin 2,000 MG/120 ML BAG IVPB SCH (21:50)
[2022-01-04] MEDS ORDERED: 0.9 % Sodium Chloride 1,000 ML IVC ONE (23:46)
[2022-01-05] MEDS ORDERED: Ketorolac 30 MG/ML VIAL IM PRN (02:55)
[2022-01-05] MEDS ORDERED: Naloxone 0.4 MG/ML INJ IVP PRN (02:59)
[2022-01-05] MEDS: Ketorolac 30 MG/ML VIAL IVP PRN (03:03)
[2022-01-05] MEDS: Ipratropium/Albuterol Neb 3 ML IH SCH ×4 (03:46→19:35)
[2022-01-05 04:59] LABS: Basophils % 0.1 %; Immature Granulocytes % 0.8 % (0-4); Lymphocytes # 0.8 K/mcL (0.6-4.6); Lymphocytes % 6.7 %; Mean Corpuscular HGB Conc 31.8 g/dL (31.6-35.5); Mean Corpuscular Hemoglobin 31.3 pg (28.0-33.3); Mean Corpuscular Volume 98.2 fL (83.0-100.0); Mean Platelet Volume 10.5 fL (9.4-12.4); Monocytes # 1.1 K/mcL (0.0-1.3); Monocytes % 8.5 %; Neutrophils # 10.4 K/mcL (1.6-8.9); Platelet Count 244 K/mcL (140-400); Red Blood Count 2.24 M/mcL (3.82-4.97); Red Cell Distribution Width 13.1 % (11.5-14.5); Segmented Neutrophils % 83.9 %
[2022-01-05 05:07] LABS: White Blood Count 12.4 K/mcL (4.3-11.1)
[2022-01-05] MEDS: CeFAZolin 2,000 MG/120 ML BAG IVPB SCH (05:08)
[2022-01-05 05:19] LABS: Calcium 8.1 mg/dL (8.6-10.3); Phosphorous 3.4 mg/dL (2.7-4.5); Potassium 4.3 mEq/L (3.5-5.1)
[2022-01-05] MEDS: Budesonide/Formoterol 80/4.5 1 PUFF INH IH SCH ×2 (08:53→19:35)
[2022-01-05] MEDS: *HR* Enoxaparin 30 MG/0.3 ML SYRINGE SQ SCH (09:10)
[2022-01-05] MEDS: Famotidine 20 MG TABLET PO SCH (09:11)
[2022-01-05] MEDS: Sennosides/Docusate Sodium TABLET PO SCH ×2 (09:11→21:15)
[2022-01-05] MEDS: predniSONE 20 MG TABLET PO SCH (09:11)
[2022-01-05] MEDS: Venlafaxine XR (24 HR) 37.5 MG CAP.ER.24H PO SCH (09:11)
[2022-01-05] MEDS: Magnesium Oxide 400 MG TABLET PO SCH (09:11)
[2022-01-05] MEDS: lisinopriL 10 MG TABLET PO SCH (09:27)
[2022-01-05] MEDS: Metoprolol XL (24 HR) Succ 25 MG TAB.ER.24H PO SCH (09:27)
[2022-01-05] MEDS: *HR* OxyCODONE Immed Rel 5 MG TABLET PO PRN (13:19)
[2022-01-06 00:55] LABS: Hematocrit 21.4 % (35.3-44.9); Hemoglobin 6.6 g/dL (11.5-15.4); Immature Granulocytes % 0.5 % (0-4); Lymphocytes # 1.3 K/mcL (0.6-4.6); Lymphocytes % 12.2 %; Mean Corpuscular HGB Conc 30.8 g/dL (31.6-35.5); Mean Corpuscular Hemoglobin 30.6 pg (28.0-33.3); Mean Corpuscular Volume 99.1 fL (83.0-100.0); Mean Platelet Volume 10.2 fL (9.4-12.4); Monocytes % 9.4 %; Neutrophils # 8.5 K/mcL (1.6-8.9); Platelet Count 247 K/mcL (140-400); Red Blood Count 2.16 M/mcL (3.82-4.97); Red Cell Distribution Width 12.9 % (11.5-14.5); Segmented Neutrophils % 77.9 %; White Blood Count 10.9 K/mcL (4.3-11.1)
[2022-01-06 01:15] LABS: BUN/Creatinine Ratio 51 (6-26); Blood Urea Nitrogen 46 mg/dL (8-23); Calcium 8.4 mg/dL (8.6-10.3); Carbon Dioxide 28 mEq/L (23-29); Chloride 102 mEq/L (98-107); Glucose 105 mg/dL (70-105); Osmolality,Calculated 294 (280-300); Potassium 4.2 mEq/L (3.5-5.1); Sodium 136 mEq/L (136-145); eGFR For African Americans > 60 (> 60); eGFR For Non-African Americans 59 (> 60)
[2022-01-06] MEDS: Ipratropium/Albuterol Neb 3 ML IH SCH ×4 (03:30→19:49)
[2022-01-06] MEDS: Ringers Solution, Lactated 1,000 ML IVC SCH ×2 (07:18→15:01)
[2022-01-06] MEDS ORDERED: 0.9 % Sodium Chloride 250 ML ONE (09:10)
[2022-01-06] MEDS: Famotidine 20 MG TABLET PO SCH (09:45)
[2022-01-06] MEDS: Magnesium Oxide 400 MG TABLET PO SCH (09:46)
[2022-01-06] MEDS: lisinopriL 10 MG TABLET PO SCH (09:46)
[2022-01-06] MEDS: Sennosides/Docusate Sodium TABLET PO SCH ×2 (09:47→21:56)
[2022-01-06] MEDS: Venlafaxine XR (24 HR) 37.5 MG CAP.ER.24H PO SCH (09:47)
[2022-01-06] MEDS: predniSONE 20 MG TABLET PO SCH (09:47)
[2022-01-06] MEDS: *HR* Enoxaparin 30 MG/0.3 ML SYRINGE SQ SCH (09:48)
[2022-01-06] MEDS: Metoprolol XL (24 HR) Succ 25 MG TAB.ER.24H PO SCH (09:48)
[2022-01-06] MEDS: *HR* OxyCODONE Immed Rel 5 MG TABLET PO PRN ×2 (09:56→21:57)
[2022-01-06] MEDS: Budesonide/Formoterol 80/4.5 1 PUFF INH IH SCH ×2 (11:20→19:55)
[2022-01-06] MEDS: Ertapenem 1,000 MG in 0.9 % Sodium Chloride Mini Bag 100 ML IVPB SCH (14:57)
[2022-01-07] MEDS: Ipratropium/Albuterol Neb 3 ML IH SCH ×4 (04:05→21:52)
[2022-01-07] MEDS: Budesonide/Formoterol 80/4.5 1 PUFF INH IH SCH ×2 (08:08→21:53)
[2022-01-07] MEDS: Venlafaxine XR (24 HR) 37.5 MG CAP.ER.24H PO SCH (08:17)
[2022-01-07] MEDS: *HR* OxyCODONE Immed Rel 5 MG TABLET PO PRN ×2 (08:17→19:54)
[2022-01-07] MEDS: Sennosides/Docusate Sodium TABLET PO SCH ×2 (08:17→19:54)
[2022-01-07] MEDS: *HR* Enoxaparin 30 MG/0.3 ML SYRINGE SQ SCH (08:18)
[2022-01-07] MEDS: Metoprolol XL (24 HR) Succ 25 MG TAB.ER.24H PO SCH (08:18)
[2022-01-07] MEDS: Famotidine 20 MG TABLET PO SCH (08:18)
[2022-01-07] MEDS: lisinopriL 10 MG TABLET PO SCH (08:18)
[2022-01-07] MEDS: Magnesium Oxide 400 MG TABLET PO SCH (08:18)
[2022-01-07] MEDS: Ertapenem 1,000 MG in 0.9 % Sodium Chloride Mini Bag 100 ML IVPB SCH (08:18)
[2022-01-07] MEDS: predniSONE 10 MG TABLET PO SCH (08:24)
[2022-01-07 12:00] LABS: Eosinophils % 0.5 %; Hematocrit 26.5 % (35.3-44.9); Hemoglobin 8.4 g/dL (11.5-15.4); Immature Granulocytes % 0.9 % (0-4); Lymphocytes # 0.5 K/mcL (0.6-4.6); Lymphocytes % 7.2 %; Mean Corpuscular HGB Conc 31.7 g/dL (31.6-35.5); Mean Corpuscular Hemoglobin 30.4 pg (28.0-33.3); Mean Platelet Volume 10.1 fL (9.4-12.4); Monocytes # 0.4 K/mcL (0.0-1.3); Monocytes % 6.8 %; Neutrophils # 5.4 K/mcL (1.6-8.9); Platelet Count 214 K/mcL (140-400); Red Blood Count 2.76 M/mcL (3.82-4.97); Red Cell Distribution Width 13.7 % (11.5-14.5); Segmented Neutrophils % 84.6 %; White Blood Count 6.4 K/mcL (4.3-11.1)
[2022-01-07 12:32] LABS: BUN/Creatinine Ratio 50 (6-26); Blood Urea Nitrogen 25 mg/dL (8-23); Calcium 8.9 mg/dL (8.6-10.3); Carbon Dioxide 32 mEq/L (23-29); Chloride 103 mEq/L (98-107); Glucose 114 mg/dL (70-105); Osmolality,Calculated 291 (280-300); Potassium 4.2 mEq/L (3.5-5.1); Sodium 138 mEq/L (136-145); eGFR For African Americans > 60 (> 60); eGFR For Non-African Americans > 60 (> 60)
[2022-01-07] MEDS: Ringers Solution, Lactated 1,000 ML IVC SCH (13:58)
[2022-01-08] MEDS: Ipratropium/Albuterol Neb 3 ML IH SCH ×4 (04:53→23:10)
[2022-01-08] MEDS: Budesonide/Formoterol 80/4.5 1 PUFF INH IH SCH ×2 (08:25→23:09)
[2022-01-08] MEDS: predniSONE 10 MG TABLET PO SCH (09:08)
[2022-01-08] MEDS: Magnesium Oxide 400 MG TABLET PO SCH (09:08)
[2022-01-08] MEDS: Sennosides/Docusate Sodium TABLET PO SCH ×2 (09:09→20:57)
[2022-01-08] MEDS: Venlafaxine XR (24 HR) 37.5 MG CAP.ER.24H PO SCH (09:09)
[2022-01-08] MEDS: Famotidine 20 MG TABLET PO SCH (09:09)
[2022-01-08] MEDS: *HR* Enoxaparin 30 MG/0.3 ML SYRINGE SQ SCH (09:10)
[2022-01-08] MEDS: Ertapenem 1,000 MG in 0.9 % Sodium Chloride Mini Bag 100 ML IVPB SCH (09:11)
[2022-01-08] MEDS: lisinopriL 10 MG TABLET PO SCH (10:06)
[2022-01-08] MEDS: Metoprolol XL (24 HR) Succ 25 MG TAB.ER.24H PO SCH (10:06)
[2022-01-08] MEDS: Ketorolac 30 MG/ML VIAL IVP PRN (10:07)
[2022-01-08] MEDS: Ringers Solution, Lactated 1,000 ML IVC SCH (17:20)
[2022-01-08] MEDS: *HR* OxyCODONE Immed Rel 5 MG TABLET PO PRN (21:01)
[2022-01-09] MEDS: Ipratropium/Albuterol Neb 3 ML IH SCH ×2 (04:50→08:14)
[2022-01-09] MEDS: Budesonide/Formoterol 80/4.5 1 PUFF INH IH SCH (08:13)
[2022-01-09] MEDS: Venlafaxine XR (24 HR) 37.5 MG CAP.ER.24H PO SCH (09:48)
[2022-01-09] MEDS: *HR* Enoxaparin 30 MG/0.3 ML SYRINGE SQ SCH (09:48)
[2022-01-09] MEDS: Sennosides/Docusate Sodium TABLET PO SCH (09:49)
[2022-01-09] MEDS: Metoprolol XL (24 HR) Succ 25 MG TAB.ER.24H PO SCH (09:49)
[2022-01-09] MEDS: Ertapenem 1,000 MG in 0.9 % Sodium Chloride Mini Bag 100 ML IVPB SCH (09:49)
[2022-01-09] MEDS: Famotidine 20 MG TABLET PO SCH (09:49)
[2022-01-09] MEDS: lisinopriL 10 MG TABLET PO SCH (09:49)
[2022-01-09] MEDS: Magnesium Oxide 400 MG TABLET PO SCH (09:49)
[2022-01-09] MEDS: *HR* OxyCODONE Immed Rel 5 MG TABLET PO PRN (10:22)
[2022-01-09 11:26] VITALS: BP 166/83; PULSE 60; TEMP 97.7; O2SAT 100
== END 2022-01-09 12:07 | DRG 480 ==
LOC: 4WAOSI → SUATTDRO 08:20
PROVIDERS: ADMIT Family Medicine; ATTEND Hospitalist